=== PATIENT | female | born 1980 | race Caucasian/White ===

== ENCOUNTER 2018-09-04 22:46 | Emergency (ER) | payer SELFPAY ==
[~2018-09-04] VITALS: Ht 160 cm; Wt 64.0 kg
[2018-09-05] MEDS ORDERED: ONDANSETRON 4MG ODT PO ONE (00:15)
[2018-09-05 02:33] VITALS: BP 111/63
== END 2018-09-05 03:33 | disposition home or self-care (01) ==
LOC: ER 22:46
DX: F10.129 Alcohol abuse with intoxication, unspecified (principal); Y90.9 Presence of alcohol in blood, level not specified; F32.9 Major depressive disorder, single episode, unspecified
CPT/HCPCS: 99283; Q0162